=== PATIENT | female | born 1985 | race Caucasian/White ===

== ENCOUNTER 2017-02-02 13:59 | Inpatient (IN) | payer BC, OTHER ==
[~2017-02-02] VITALS: Ht 172.7 cm; Wt 77.6 kg
[2017-02-02 14:52] LABS: CONDITION Y; DEFINITIVE SEE PRINTOUT; Hematocrit 43.2 % (36.0-46.0); Hemoglobin 14.6 g/dL (12.2-16.2); Mean Corpuscular Hemoglobin 26.7 pg (28.0-32.0); Mean Corpuscular Hgb Conc. 33.7 g/dL (32.0-36.0); Mean Corpuscular Volume 79.1 fL (80.0-100.0); Mean Platelet Volume 9.1 fL (7.4-10.4); Platelet Count (auto) 275 10^3/uL (140-450); Red Cell Distribution Width 19.2 % (11.6-16.0); SUSPECT SEE PRINTOUT; White Blood Cell 18.5 10^3/uL (4.4-10.8)
[2017-02-02 14:54] LABS: Metamyelocytes % 0; Myelocytes % 0; Promyelocytes % 0; Reactive Lymphocytes 0
[2017-02-02] MEDS ORDERED: SODIUM CHLORIDE 0.9% 1,000 ML IVB ONE (15:08)
[2017-02-02 15:11] LABS: Albumin 3.7 g/dL (3.4-5.0); BUN/Creatinine Ratio 7.6; Calcium 8.5 mg/dL (8.5-10.1); Magnesium 1.9 mg/dL (1.6-2.6); Potassium 3.2 mmol/L (3.5-5.1)
[2017-02-02 15:13] LABS: Bilirubin, Total 0.9 mg/dL (0.2-1.0); Total Protein 7.7 g/dL (6.4-8.2)
[2017-02-02] MEDS ORDERED: cefTRIAXone 1GM/50ML D5W AE IV ONE (15:15)
[2017-02-02] MEDS ORDERED: MORPHINE SULFATE 4 MG/ML SYRG IV ONE (15:15)
[2017-02-02 15:46] LABS: Anisocytosis Moderate; Hypochromia Moderate; Ovalocytes FEW; Platelet Estimate Adequate
[2017-02-02] MEDS ORDERED: MORPHINE SULF INJ 2 MG/ML SYRINGE 1ML IV PRN (18:30)
[2017-02-02] MEDS ORDERED: PANTOPRAZOLE 40 MG/10 ML VIAL IV ONE (18:30)
[2017-02-02] MEDS ORDERED: SODIUM CHLORIDE 0.9% 2,000 ML IV ONE (18:30)
[2017-02-02] MEDS ORDERED: TEMAZEPAM 15 MG CAP PO PRN (18:30)
[2017-02-02] MEDS ORDERED: PIPERACILLIN-TAZOB 2.25GM 50 ML IV ONE (18:30)
[2017-02-02] MEDS ORDERED: methylPREDNISolone SOD SUCC 125 MG/2 ML VL IV ONE (18:30)
[2017-02-02] MEDS ORDERED: PROMETHAZINE HCL 25 MG/ML 1ML IV PRN (18:30)
[2017-02-02] MEDS ORDERED: NITROGLYCERIN 0.4 MG SL TAB SL PRN (18:30)
[2017-02-02] MEDS ORDERED: DEXTROSE (50%) 50ML SYRG IV PRN (18:30)
[2017-02-02] MEDS ORDERED: LORazepam 0.5 MG TAB PO PRN (18:30)
[2017-02-02] MEDS ORDERED: ACETAMINOPHEN 500 MG TAB PO PRN (18:30)
[2017-02-02] MEDS: SODIUM CHLORIDE 0.9% 1,000 ML IV SCH (18:57)
[2017-02-02 19:18] LABS: Lactic Acid w/Reflex 3.4 mmol/L (0.4-2.0)
[2017-02-02] MEDS: NOREPINEPHRINE BITARTRATE 250 ML IV SCH (19:18)
[2017-02-02 19:29] LABS: REFLEX LACTIC ACID YES OR NO YES
[2017-02-02 20:30] LABS: INR 1.22 (0.9-1.15)
[2017-02-02 20:36] LABS: Prothrombin Time 13.3 sec (9.37-12.3)
[2017-02-02] MEDS: MORPHINE SULF INJ 2 MG/ML SYRINGE 1ML IV PRN (21:06)
[2017-02-02] MEDS: PIPERACILLIN-TAZOB 2.25GM 50 ML IV SCH (22:06)
[2017-02-03] MEDS: ACCU-CHEK COMFORT CURVE STRIP VI SCH ×5 (00:04→18:08)
[2017-02-03] MEDS: methylPREDNISolone SOD SUCC 40 MG/ML VL IV SCH ×4 (00:04→17:42)
[2017-02-03] MEDS: metroNIDAZOLE 500MG/100ML 100 ML IV SCH ×4 (00:04→17:42)
[2017-02-03] MEDS: SODIUM CHLORIDE 0.9% 1,000 ML IV SCH ×4 (01:15→21:20)
[2017-02-03] MEDS: MORPHINE SULFATE 4 MG/ML SYRG IV PRN ×2 (03:15→16:32)
[2017-02-03] MEDS: PIPERACILLIN-TAZOB 2.25GM 50 ML IV SCH ×3 (06:05→21:36)
[2017-02-03 06:16] LABS: CONDITION Y; DEFINITIVE SEE PRINTOUT; Hematocrit 30.9 % (36.0-46.0); Hemoglobin 10.6 g/dL (12.2-16.2); Mean Corpuscular Hemoglobin 26.8 pg (28.0-32.0); Mean Corpuscular Hgb Conc. 34.3 g/dL (32.0-36.0); Mean Corpuscular Volume 78.4 fL (80.0-100.0); Mean Platelet Volume 8.9 fL (7.4-10.4); Platelet Count (auto) 177 10^3/uL (140-450); Red Cell Distribution Width 19.1 % (11.6-16.0); SUSPECT SEE PRINTOUT; White Blood Cell 16.8 10^3/uL (4.4-10.8)
[2017-02-03 06:27] LABS: Metamyelocytes % 0; Myelocytes % 0; Promyelocytes % 0; Reactive Lymphocytes 0
[2017-02-03] MEDS: PANTOPRAZOLE 40 MG TAB PO SCH (09:04)
[2017-02-03] MEDS: MORPHINE SULF INJ 2 MG/ML SYRINGE 1ML IV PRN ×2 (09:04→13:05)
[2017-02-03 10:08] LABS: Lactic Acid w/Reflex 2.1 mmol/L (0.4-2.0)
[2017-02-03 10:30] LABS: REFLEX LACTIC ACID YES OR NO YES
[2017-02-03 10:46] LABS: Potassium 3.2 mmol/L (3.5-5.1)
[2017-02-03 10:47] LABS: BUN/Creatinine Ratio 13.6
[2017-02-03 10:48] LABS: Albumin 2.4 g/dL (3.4-5.0); Bilirubin, Total 0.6 mg/dL (0.2-1.0); Total Protein 5.1 g/dL (6.4-8.2)
[2017-02-03 10:51] LABS: Calcium 5.7 mg/dL (8.5-10.1)
[2017-02-03] MEDS ORDERED: CALCIUM GLUC 4.65meq/50ml D5AE 50 ML IV ONE (11:15)
[2017-02-03] MEDS ORDERED: DEXTROSE (50%) 50ML SYRG IV PRN (11:30)
[2017-02-03] MEDS ORDERED: POTASSIUM CHLORIDE 20 MEQ, LIDOCAINE 1% (LOCAL ANESTH.) 2 ML in SODIUM CHL 0.9% 100 ML IV ONE ×3 (12:00→19:30)
[2017-02-03] MEDS: InsuLIN REG 1unit/0.01ml Soln (100units/ml) SC SCH ×2 (12:40→18:20)
[2017-02-03] MEDS ORDERED: POTASSIUM CHL IV ONE ×2 (14:45→19:30)
[2017-02-03] MEDS ORDERED: LIDOCAINE 1% IV ONE ×2 (14:45→19:30)
[2017-02-03 15:55] LABS: Anisocytosis Slight; Burr Cells MODERATE; Hypochromia Slight; Microcytosis Slight; Platelet Estimate Adequate
[2017-02-03 15:56] LABS: Ovalocytes FEW
[2017-02-03 18:19] LABS: Potassium 3.2 mmol/L (3.5-5.1)
[2017-02-03] MEDS: NOREPINEPHRINE BITARTRATE 250 ML IV SCH (18:21)
[2017-02-03 18:35] LABS: Albumin 2.6 g/dL (3.4-5.0); BUN/Creatinine Ratio 16.5; Bilirubin, Total 0.6 mg/dL (0.2-1.0); Calcium 6.3 mg/dL (8.5-10.1); Total Protein 5.4 g/dL (6.4-8.2)
[2017-02-03] MEDS ORDERED: POTASSIUM CHL 20MEQ/100ML 100 ML IV ONE (19:30)
[2017-02-03 20:13] LABS: Urine Bilirubin Negative (Negative); Urine Blood TRACE /uL (Negative); Urine Color Yellow (Yellow); Urine Glucose Normal (Normal); Urine Ketone Negative (Negative); Urine Mucus FEW (None Seen); Urine Nitrite Negative (Negative); Urine RBC 1 /hpf (0 - 4); Urine Squamous Epithelial Cell FEW /hpf (<5); Urine Urobilinogen Normal (Negative)
[2017-02-04] VITALS (54 sets, daily range): BP systolic 94–118; BP diastolic 45–85
[2017-02-04] MEDS: methylPREDNISolone SOD SUCC 40 MG/ML VL IV SCH ×4 (00:01→17:50)
[2017-02-04] MEDS: ACCU-CHEK COMFORT CURVE STRIP VI SCH ×4 (00:01→17:42)
[2017-02-04] MEDS: metroNIDAZOLE 500MG/100ML 100 ML IV SCH ×4 (00:01→17:50)
[2017-02-04] MEDS: MORPHINE SULF INJ 2 MG/ML SYRINGE 1ML IV PRN ×3 (02:42→15:10)
[2017-02-04] MEDS: PROMETHAZINE HCL 25 MG/ML 1ML IV PRN ×2 (02:43→15:36)
[2017-02-04] MEDS: SODIUM CHLORIDE 0.9% 1,000 ML IV SCH ×4 (03:42→23:42)
[2017-02-04] MEDS ORDERED: PRE5T PO (06:10)
[2017-02-04] MEDS: PIPERACILLIN-TAZOB 2.25GM 50 ML IV SCH ×3 (06:30→22:01)
[2017-02-04] MEDS: InsuLIN REG 1unit/0.01ml Soln (100units/ml) SC SCH ×4 (06:31→17:50)
[2017-02-04] MEDS: MORPHINE SULFATE 4 MG/ML SYRG IV PRN (06:32)
[2017-02-04 08:19] LABS: CONDITION Y; DEFINITIVE SEE PRINTOUT; Hematocrit 27.8 % (36.0-46.0); Hemoglobin 9.4 g/dL (12.2-16.2); Mean Corpuscular Hemoglobin 26.4 pg (28.0-32.0); Mean Corpuscular Hgb Conc. 33.8 g/dL (32.0-36.0); Mean Corpuscular Volume 78.3 fL (80.0-100.0); Mean Platelet Volume 9.5 fL (7.4-10.4); Platelet Count (auto) 146 10^3/uL (140-450); SUSPECT SEE PRINTOUT; White Blood Cell 15.1 10^3/uL (4.4-10.8)
[2017-02-04 08:39] LABS: Albumin 2.4 g/dL (3.4-5.0); BUN/Creatinine Ratio 19.5
[2017-02-04 08:40] LABS: Metamyelocytes % 0; Myelocytes % 0; Promyelocytes % 0; Reactive Lymphocytes 0
[2017-02-04 08:44] LABS: Bilirubin, Total 0.5 mg/dL (0.2-1.0); Total Protein 5.1 g/dL (6.4-8.2)
[2017-02-04 08:45] LABS: Calcium 5.9 mg/dL (8.5-10.1)
[2017-02-04 08:51] LABS: Potassium 2.9 mmol/L (3.5-5.1)
[2017-02-04] MEDS ORDERED: POTASSIUM CHLORIDE 40 MEQ, LIDOCAINE 1% (LOCAL ANESTH.) 4 ML in SODIUM CHL 0.9% 250 ML IV ONE (09:30)
[2017-02-04] MEDS: PANTOPRAZOLE 40 MG TAB PO SCH (10:02)
[2017-02-04] MEDS ORDERED: GOLYTELY 4L KIT PO ONE (12:45)
[2017-02-04 16:23] LABS: Platelet Estimate Adequate
[2017-02-04 16:24] LABS: Anisocytosis Slight; Burr Cells MANY; Hypochromia Slight; Microcytosis Slight
[2017-02-04 16:25] LABS: Ovalocytes FEW
[2017-02-04 17:04] LABS: Potassium 3.4 mmol/L (3.5-5.1)
[2017-02-04] MEDS ORDERED: POTASSIUM CHLORIDE 20 MEQ, LIDOCAINE 1% (LOCAL ANESTH.) 2 ML in SODIUM CHL 0.9% 100 ML IV ONE (17:45)
[2017-02-04] MEDS: NOREPINEPHRINE BITARTRATE 250 ML IV SCH (18:30)
[2017-02-05] VITALS (19 sets, daily range): BP systolic 87–111; BP diastolic 43–69
[2017-02-05] MEDS: methylPREDNISolone SOD SUCC 40 MG/ML VL IV SCH ×4 (00:14→17:25)
[2017-02-05] MEDS: metroNIDAZOLE 500MG/100ML 100 ML IV SCH ×4 (00:14→17:25)
[2017-02-05] MEDS: ACCU-CHEK COMFORT CURVE STRIP VI SCH ×4 (00:15→16:52)
[2017-02-05] MEDS: SODIUM CHLORIDE 0.9% 1,000 ML IV SCH ×4 (02:00→21:19)
[2017-02-05 03:51] LABS: Basophils # (auto) 0 uL; CONDITION Y; DEFINITIVE SEE PRINTOUT; Eosinophils # (auto) 0 uL; Hematocrit 25.5 % (36.0-46.0); Hemoglobin 8.6 g/dL (12.2-16.2); Lymphocytes # (auto) 0.3 uL; Lymphocytes % (auto) 3.7 % (10.0-50.0); Mean Corpuscular Hemoglobin 26.3 pg (28.0-32.0); Mean Corpuscular Hgb Conc. 33.6 g/dL (32.0-36.0); Mean Corpuscular Volume 78.5 fL (80.0-100.0); Mean Platelet Volume 9.7 fL (7.4-10.4); Monocytes # (auto) 0.3 uL; Monocytes % (auto) 3.1 % (0.0-12.0); Neutrophils # (auto) 8.2 uL; Neutrophils % (auto) 93.2 % (37.0-80.0); Platelet Count (auto) 106 10^3/uL (140-450); Red Cell Distribution Width 19.8 % (11.6-16.0); White Blood Cell 8.8 10^3/uL (4.4-10.8)
[2017-02-05 04:23] LABS: Albumin 2.3 g/dL (3.4-5.0); BUN/Creatinine Ratio 13.4; Bilirubin, Total 0.7 mg/dL (0.2-1.0); Total Protein 4.9 g/dL (6.4-8.2)
[2017-02-05 04:36] LABS: Potassium 2.9 mmol/L (3.5-5.1)
[2017-02-05] MEDS ORDERED: CALCIUM GLUC 4.65meq/50ml D5AE 50 ML IV ONE (05:30)
[2017-02-05] MEDS: InsuLIN REG 1unit/0.01ml Soln (100units/ml) SC SCH ×4 (06:00→17:26)
[2017-02-05] MEDS: POTASSIUM CHL 20MEQ/100ML 100 ML IV SCH ×2 (06:13→09:26)
[2017-02-05] MEDS: PIPERACILLIN-TAZOB 2.25GM 50 ML IV SCH ×3 (06:47→21:19)
[2017-02-05] MEDS ORDERED: diphenhdrAMINE HCL 50 MG/1 ML VL ONE (08:37)
[2017-02-05] MEDS ORDERED: SODIUM CHLORIDE LOCK 10 ML ONE (08:37)
[2017-02-05] MEDS: PANTOPRAZOLE 40 MG TAB PO SCH (09:20)
[2017-02-05] MEDS ORDERED: POTASSIUM CHLORIDE 40 MEQ, LIDOCAINE 1% (LOCAL ANESTH.) 4 ML in SODIUM CHL 0.9% 250 ML IV ONE (09:45)
[2017-02-05 11:07] LABS: Antiproteinase 3 (PR-3) Ab <3.5 U/mL (0.0-3.5)
[2017-02-05] MEDS: fentaNYL CITRATE 100 MCG/2 ML VL ONE ×3 (12:18→12:26)
[2017-02-05] MEDS: MIDAZOLAM HCL 5 MG/ML-1ML VIAL ONE ×3 (12:18→12:26)
[2017-02-05] MEDS ORDERED: MIDAZOLAM HCL 5 MG/ML-1ML VIAL ONE (12:29)
[2017-02-05] MEDS ORDERED: fentaNYL CITRATE 100 MCG/2 ML VL ONE (12:29)
[2017-02-05] MEDS: BOOST PLUS 8 ounce PO SCH ×3 (12:40→21:19)
[2017-02-05 14:55] LABS: Hematocrit 28.6 % (36.0-46.0); Hemoglobin 9.6 g/dL (12.2-16.2)
[2017-02-05 15:23] LABS: BUN/Creatinine Ratio 16.4; Calcium 6.1 mg/dL (8.5-10.1)
[2017-02-05 15:25] LABS: Potassium 2.8 mmol/L (3.5-5.1)
[2017-02-05 20:17] LABS: Hematocrit 29.7 % (36.0-46.0); Hemoglobin 9.9 g/dL (12.2-16.2)
[2017-02-06] MEDS: metroNIDAZOLE 500MG/100ML 100 ML IV SCH ×2 (00:10→06:06)
[2017-02-06] MEDS: methylPREDNISolone SOD SUCC 40 MG/ML VL IV SCH ×5 (00:11→23:42)
[2017-02-06] MEDS: ACCU-CHEK COMFORT CURVE STRIP VI SCH ×5 (00:11→23:42)
[2017-02-06] MEDS: InsuLIN REG 1unit/0.01ml Soln (100units/ml) SC SCH ×5 (00:24→23:42)
[2017-02-06] MEDS: SODIUM CHLORIDE 0.9% 1,000 ML IV SCH ×3 (02:22→15:42)
[2017-02-06] MEDS: PIPERACILLIN-TAZOB 2.25GM 50 ML IV SCH (04:34)
[2017-02-06 04:41] LABS: Basophils # (auto) 0 uL; CONDITION Y; DEFINITIVE SEE PRINTOUT; Eosinophils # (auto) 0 uL; Hemoglobin 8.8 g/dL (12.2-16.2); Lymphocytes # (auto) 0.6 uL; Lymphocytes % (auto) 7.1 % (10.0-50.0); Mean Corpuscular Hemoglobin 26.4 pg (28.0-32.0); Mean Corpuscular Hgb Conc. 33.7 g/dL (32.0-36.0); Mean Corpuscular Volume 78.3 fL (80.0-100.0); Mean Platelet Volume 10.5 fL (7.4-10.4); Monocytes # (auto) 0.3 uL; Monocytes % (auto) 3.1 % (0.0-12.0); Neutrophils # (auto) 7.8 uL; Neutrophils % (auto) 89.8 % (37.0-80.0); Platelet Count (auto) 102 10^3/uL (140-450); White Blood Cell 8.6 10^3/uL (4.4-10.8)
[2017-02-06 04:50] LABS: Albumin 2.1 g/dL (3.4-5.0); Calcium 6.7 mg/dL (8.5-10.1); Potassium 3.3 mmol/L (3.5-5.1)
[2017-02-06 04:53] LABS: BUN/Creatinine Ratio 24.3
[2017-02-06 04:56] LABS: Bilirubin, Total 0.2 mg/dL (0.2-1.0); Total Protein 4.5 g/dL (6.4-8.2)
[2017-02-06 05:00] VITALS: BP 119/80
[2017-02-06] MEDS: BOOST PLUS 8 ounce PO SCH ×4 (06:06→21:15)
[2017-02-06 09:00] VITALS: BP 121/74
[2017-02-06] MEDS: PANTOPRAZOLE 40 MG TAB PO SCH (10:03)
[2017-02-06] MEDS ORDERED: cefTRIAXone 1GM/50ML D5W 50 ML IV SCH (11:00)
[2017-02-06] MEDS ORDERED: LEVOFLOXACIN 500 MG TAB PO ONE (12:00)
[2017-02-06] MEDS: metroNIDAZOLE 500 MG TAB PO SCH ×2 (14:09→21:15)
[2017-02-06 15:27] VITALS: BP 136/68
[2017-02-06] MEDS ORDERED: POTASSIUM CHLORIDE 40 MEQ in LACTATED RINGER'S 1,000 ML IV SCH (18:30)
[2017-02-06 22:00] VITALS: BP 137/79
[2017-02-07] MEDS: metroNIDAZOLE 500 MG TAB PO SCH ×2 (05:28→14:29)
[2017-02-07] MEDS: methylPREDNISolone SOD SUCC 40 MG/ML VL IV SCH ×2 (05:28→12:18)
[2017-02-07] MEDS: ACCU-CHEK COMFORT CURVE STRIP VI SCH ×2 (05:28→12:18)
[2017-02-07] MEDS: BOOST PLUS 8 ounce PO SCH ×2 (05:28→12:00)
[2017-02-07] MEDS: InsuLIN REG 1unit/0.01ml Soln (100units/ml) SC SCH ×2 (05:29→12:00)
[2017-02-07 09:00] VITALS: BP 127/85
[2017-02-07] MEDS: PANTOPRAZOLE 40 MG TAB PO SCH (10:00)
[2017-02-07] MEDS ORDERED: LEVOFLOXACIN 500 MG TAB PO SCH (10:00)
[2017-02-07 11:58] LABS: Basophils # (auto) 0 uL; Basophils % (auto) 0.3 % (0.0-2.0); CONDITION Y; DEFINITIVE SEE PRINTOUT; Eosinophils # (auto) 0 uL; Hematocrit 32.6 % (36.0-46.0); Hemoglobin 10.9 g/dL (12.2-16.2); Lymphocytes # (auto) 1.5 uL; Lymphocytes % (auto) 10.7 % (10.0-50.0); Mean Corpuscular Hemoglobin 26.4 pg (28.0-32.0); Mean Corpuscular Hgb Conc. 33.4 g/dL (32.0-36.0); Mean Corpuscular Volume 79.1 fL (80.0-100.0); Mean Platelet Volume 10.1 fL (7.4-10.4); Monocytes # (auto) 0.8 uL; Monocytes % (auto) 5.5 % (0.0-12.0); Neutrophils # (auto) 11.6 uL; Neutrophils % (auto) 83.5 % (37.0-80.0); Platelet Count (auto) 166 10^3/uL (140-450); Red Cell Distribution Width 19.6 % (11.6-16.0); White Blood Cell 13.9 10^3/uL (4.4-10.8)
[2017-02-07 12:21] LABS: BUN/Creatinine Ratio 27.5; Calcium 7.9 mg/dL (8.5-10.1); Potassium 3.5 mmol/L (3.5-5.1)
[2017-02-07 13:29] VITALS: BP 108/70
[2017-02-07 14:01] LABS: Anisocytosis Slight
[2017-02-07 14:08] LABS: Platelet Estimate Adequate
[2017-02-07 17:27] VITALS: BP 130/88
[2017-02-07 18:16] VITALS: BP 127/85
== END 2017-02-07 18:45 | disposition home or self-care (01) | DRG 871 ==
LOC: ER 13:59 → TELE 14:00 → ICU WEST 02-04 04:50 → TELE-WESTW 02-05 07:49
PROVIDERS: ADMIT Internal Medicine; ATTEND Internal Medicine Pulmonary Disease
PROC: 0DBF8ZX Excision of Right Large Intestine, Via Natural or Artificial Opening Endoscopic, Diagnostic (ICD-10-PCS; 2017-02-05)
PROC: 0DBB8ZX Excision of Ileum, Via Natural or Artificial Opening Endoscopic, Diagnostic (ICD-10-PCS; principal; 2017-02-05 13:15)
DX: A41.9 Sepsis, unspecified organism (principal); E43 Unspecified severe protein-calorie malnutrition; N17.0 Acute kidney failure with tubular necrosis; E87.2 Acidosis; E27.2 Addisonian crisis; K50.00 Crohn's disease of small intestine without complications; E83.51 Hypocalcemia; E86.0 Dehydration; N18.4 Chronic kidney disease, stage 4 (severe); E03.9 Hypothyroidism, unspecified; M06.9 Rheumatoid arthritis, unspecified; E87.6 Hypokalemia; E86.1 Hypovolemia; I12.9 Hypertensive chronic kidney disease with stage 1 through stage 4 chronic kidney disease, or unspecified chronic kidney disease; K64.8 Other hemorrhoids; R65.20 Severe sepsis without septic shock; D63.8 Anemia in other chronic diseases classified elsewhere; Z80.49 Family history of malignant neoplasm of other genital organs; Z68.26 Body mass index [BMI] 26.0-26.9, adult
CPT/HCPCS: 36415; 45380; 71010; 74176; 76705; 76775; 80048; 80053; 81001; 81025; 82150; 82270; 82306; 82962; 83036; 83520; 83605; 83690; 83735; 83970; 84132; 84443; 84484; 84702; 85007; 85014; 85018; 85025; 85027; 85610; 85652; 86141; 86256; 87040; 87045; 87081; 87086; 87493; 87899; 93005; 93306; 94761; 96361; 96374; 96375; C9113; J0610; J0696; J1815; J2001; J2250; J2543; J3480; J3490